=== PATIENT | male | born 1935 | race Caucasian/White ===

== ENCOUNTER 2021-07-01 16:58 | Emergency (ER) | payer MEDICARE, OTHER, SELFPAY ==
[2021-07-01 17:10] VITALS: BP 139/66; PULSE 67; RESP 16; TEMP 36.6; O2SAT 95; BMI 25.7
--- NOTE | 2021-07-01 17:16 | DI.RAD.S_ITS ---
PROCEDURE: XR FINGER RT MIN 2V INDICATIONS: deep laceration TECHNIQUE: AP hand, 2 views of the thumb acquired. COMPARISON: None. FINDINGS: Bones: There are degenerative changes of the hand. No erosions. Soft tissues: There is soft tissue swelling over the base of the thumb and the thenar space. No radiopaque foreign body. IMPRESSION: 1. Soft tissue injury without underlying bony injury. 2. No radiopaque foreign body. 3. Degenerative changes. Dictated by: Stephen Vo M.D. on 07/01/2021 at 17:46 Approved by: Stephen Vo M.D. on 07/01/2021 at 17:47
--- NOTE | 2021-07-01 19:47 | ED_ITS ---
HPI - Wound/Laceration General Chief Complaint: Wound/Laceration Stated Complaint: Laceration, Rt Thumb Time Seen by Provider: 07/01/21 19:43 Mode of arrival: Ambulatory History of Present Illness HPI narrative: 86M nonsmoker with noncontributory medical history presents with an accidental, large and complex laceration on the dorsum of his right thumb after getting his hand caught up in the ringing on his boat when trying to lower the dingy. He has a deep complex laceration but denies any numbness, tingling or weakness. He is otherwise well and free of complaint Related Data Previous Rx's Medication Instructions Recorded cephalexin 500 mg capsule 500 mg PO Q6H 7 Days #28 cap 07/01/21 Allergies Allergy/AdvReac Type Severity Reaction Status Date / Time No Known Drug Allergies Allergy Verified 07/01/21 17:15 Review of Systems Review of Systems Narrative: GENERAL: Denies chills, fatigue, malaise, fever, sweats. HEENT: Denies sinus pain, ear pain, sore throat, difficulty swallowing, dizziness. RESPIRATORY: Denies dyspnea, cough, wheezing, hemoptysis, sputum. CARDIOVASCULAR: Denies chest pain, palpitations, orthopnea, edema, GASTROINTESTINAL: Denies nausea, vomiting, abdominal pain, diarrhea, constipation, melena. : Denies dysuria, frequency, incontinence, hematuria, urinary retention. MUSCULOSKELETAL: See HPI SKIN: Denies rash, skin lesions, or other NEUROLOGIC: Denies weakness, headache, numbness, change in speech, confusion, seizures, incoordination. PSYCHIATRIC: No concerning psychosocial issues. 12 point review of systems is negative except for those stated above Patient History Social History Smoking Status: Never smoker Smoking Status: Never smoker alcohol intake frequency: 0-2 drinks per day Substance Use Type: does not use Exam Narrative Exam Narrative: GEN: AOx3 and in mild distress EYES: Pupils are equal, round, and reactive to light and accommodation. Extraoccular muscles are intact bilaterally. There is no subconjunctival hemorrhage or exudate. CHEST: Lungs are clear to auscultation bilaterally and free of wheezes, rales, or rhonchi. Heart rate is regular rhythm, there are no murmurs, clicks, rubs, or gallops. There is no chest wall tenderness. ABD: Abdomen is soft and nontender. There is no guarding or rebound. Bowel sounds are normal in all 4 quadrants. There is no mass or organomegaly. EXT: 7cm deep laceration on dorsum of right thumb. No foreign body noted. When viewed in a bloodless field tendon glide is visualized and no obvious injuries noted. Full painless ROM of all extremities with no loss of sensation or strength. SKIN: Warm, pink, and dry. No erythema or rash Initial Vital Signs Initial Vital Signs: Vital Signs Temperature 97.8 F 07/01/21 17:10 Pulse Rate 67 07/01/21 17:10 Respiratory Rate 16 07/01/21 17:10 Blood Pressure 139/66 07/01/21 17:10 Pulse Oximetry 95 07/01/21 17:10 Procedures Laceration Repair Laceration 1: Site: hand Side (If applicable): right Size (cm): 7 Description: stellate, flap, irregular and clean Depth: involves muscle layer Local Anesthetic: lidocaine 1% and with bicarb Amount of anesthesia used (mL): 6 Pre-repair: wound explored, irrigated extensively and deep structures intact Skin layer closed with: nylon Size (cm): 5-0 Number of sutures: 11 Technique: simple, interrupted Subcutaneous layer closed with: vicryl Size: 4-0 Number of sutures: 3 Orthopedic Splinting/Casting Injury #1: Side: right Upper Extremity Injury Location: finger Upper Extremity Immobilizer: thumb spica Post splinting neuro exam: intact Post splinting vascular exam: intact Placed by: Nursing Course Orders Ordered: Discontinued Medications Lidocaine/Sodium Bicarbonate (Lido 1%/Sod Bicarb 8.4% (10ml) 10 Ml Syringe) 10 ml INJ NOW ONE Stop: 07/01/21 19:46 Last Admin: 07/01/21 20:01 Dose: 10 ml Documented by: [email or web address] Vital Signs Vital signs: Vital Signs - 8 hr 07/01/21 21:18 Pulse Rate 78 Respiratory Rate 14 Pulse Oximetry 98 MDM - Wound/Laceration MDM Narrative Medical decision making narrative: Deep and complex laceration without arterial, nerve or tendon involvement. Extensive cleaning, multilayer closure. A significant discussion with the patient regarding importance of close follow-up, return precautions given and questions answered to his apparent satisfaction Discharge Plan Departure Patient Disposition: Home Clinical Impression: Laceration Instructions: DI for Laceration Repair Activity Restrictions/Additional Instructions: *You have been diagnosed with [complex right hand laceration] *What to do: *Please continue to take your regular medications as directed. [ ] New medication prescriptions sent to your pharmacy: [ ] [x ] New medication written as a paper prescription [ ] No new medications given * Please keep the wound clean and dry to the best of your ability. Please monitor for signs of infection such as redness to the skin or increasing pain. Have the sutures removed by your doctor in about 7 days. If you are unable to get into your doctor, we would be happy to remove the sutures in that same timeframe. Please follow up with your primary care provider in 2-3 days, call for an appointment. Let them know you were seen in the Emergency Department and that we ask that you be seen in follow up. We will electronically transmit a record of today's note if your PCP is in our system *If you do not have a primary care provider please contact the [facility] Resource line at [phone]. They will ask some questions about your medical history and help get you set up with a doctor in the community. *Return to Emergency Department if you should have any new, worsening or concerning symptoms, such as [fever greater than 101 F, shaking chills, worsening pain, persistent vomiting or other bothersome symptoms] Prescriptions: New cephalexin 500 mg capsule 500 mg PO Q6H 7 Days Qty: 28 RF: 0
[2021-07-01] MEDS: LIDO 1%/SOD BICARB 8.4% (10ML) 10 ML SYRINGE INJ (20:01)
--- NOTE | 2021-07-01 21:16 | PC.NURSE ---
Right thumb in pressure dressing placed in triage. Pt reports CMS intact
--- NOTE | 2021-07-01 21:17 | PC.NURSE ---
Sutured wound cleaned, dry non adherent dressing, kerlix, coban dressing done. Right thumb spica placed, CMS intact, pt sts comfortable and verbalized understanding of wound care and splint use.
[2021-07-01 21:18] VITALS: PULSE 78; RESP 14; O2SAT 98
== END 2021-07-01 21:00 | disposition home or self-care (01) ==
PROVIDERS: Emergency Provider Emergency Medicine
DX: S61.011A Laceration without foreign body of right thumb without damage to nail, initial encounter (principal); X58.XXXA Exposure to other specified factors, initial encounter
CPT/HCPCS: 13132; 73140; 99283; 99284